=== PATIENT | male | born 1995 ===

== ENCOUNTER 2021-03-01 18:34 | Emergency (ER) | payer SELFPAY ==
[~2021-03-01] VITALS: Ht 150 cm; Wt 81.8 kg
[2021-03-01 20:00] VITALS: BP 132/70; PULSE 84; TEMP 98.4
== END 2021-03-01 20:00 | disposition home or self-care (01) ==
LOC: COL.ER 18:34
DX: S46.911A Strain of unspecified muscle, fascia and tendon at shoulder and upper arm level, right arm, initial encounter (principal); W01.0XXA Fall on same level from slipping, tripping and stumbling without subsequent striking against object, initial encounter; Y92.009 Unspecified place in unspecified non-institutional (private) residence as the place of occurrence of the external cause; Y99.0 Civilian activity done for income or pay

== ENCOUNTER 2021-10-25 14:53 | Emergency (ER) | payer SELFPAY ==
[~2021-10-25] VITALS: Ht 162.6 cm; Wt 81.8 kg
[2021-10-25 15:00] VITALS: BP 110/71; TEMP 98.3
[2021-10-25] MEDS ORDERED: FLEXERIL 1010 MG/TAB PO (15:39)
[2021-10-25] MEDS ORDERED: PREDNISONE20 MG PO (15:39)
[2021-10-25 16:10] VITALS: PULSE 80
== END 2021-10-25 16:10 | disposition home or self-care (01) ==
LOC: COL.ER 14:53
DX: M25.511 Pain in right shoulder (principal); Z28.310 Unvaccinated for COVID-19; X50.0XXA Overexertion from strenuous movement or load, initial encounter; Y92.59 Other trade areas as the place of occurrence of the external cause; Y99.0 Civilian activity done for income or pay
CPT/HCPCS: J7512

== ENCOUNTER 2021-11-28 08:10 | Outpatient (RCR) | payer SELFPAY ==
[~2021-11-28 08:10] MED LIST: FLEXERIL 1010 MG/TAB PO; PREDNISONE20 MG PO
== END 2021-12-06 | disposition home or self-care (01) ==
LOC: WSPT
DX: M25.512 Pain in left shoulder (principal)

== ENCOUNTER 2022-01-04 09:00 | Outpatient (RCR) | payer SELFPAY | END 2022-01-06 | disposition home or self-care (01) | LOC: WSPT | DX: M25.512 Pain in left shoulder (principal) ==

== ENCOUNTER 2022-01-29 09:00 | Outpatient (RCR) | payer SELFPAY | END 2022-01-29 14:00 | disposition home or self-care (01) | LOC: WSPT 09:00 | DX: M25.511 Pain in right shoulder (principal); Z98.890 Other specified postprocedural states ==

== ENCOUNTER 2022-02-19 17:03 | Emergency (ER) | payer SELFPAY ==
[~2022-02-19] VITALS: Ht 160 cm; Wt 86.4 kg
[2022-02-19 17:23] VITALS: TEMP 98.1
[2022-02-19] MEDS ORDERED: NORCO 325 MG-51 TAB PO (20:33)
[2022-02-19] MEDS ORDERED: AMOXICILLIN 8751 TAB PO (20:33)
[2022-02-19 20:50] VITALS: BP 120/68; PULSE 70
== END 2022-02-19 21:10 | disposition home or self-care (01) ==
LOC: COL.ER 17:03
DX: S71.141A Puncture wound with foreign body, right thigh, initial encounter (principal); Z23 Encounter for immunization; F17.210 Nicotine dependence, cigarettes, uncomplicated; W29.4XXA Contact with nail gun, initial encounter

== ENCOUNTER 2022-02-21 05:35 | Day surgery (SDC) | payer SELFPAY ==
[~2022-02-21] VITALS: Ht 162.6 cm; Wt 86.6 kg
[~2022-02-21 05:35] MED LIST changes: +AMOXICILLIN 8751 TAB PO; +NORCO 325 MG-51 TAB PO
[2022-02-21 06:05] VITALS: BP 120/79; PULSE 60; TEMP 97.8
--- NOTE | 2022-02-21 06:43 | NUR ---
Patient prefers reading and writing in togolese. Phone translater used when needed. Friend at bedside able to translate for patient as well.
[2022-02-21 08:45] VITALS: BP 109/59; PULSE 76
[2022-02-21 09:00] VITALS: BP 107/64; PULSE 76; TEMP 97.8
[2022-02-21 09:15] VITALS: BP 102/56; PULSE 63
[2022-02-21 09:30] VITALS: BP 108/69; PULSE 82; TEMP 97.6
--- NOTE | 2022-02-21 10:21 | NUR ---
0845: Patient arrived back into [facility] from PACU. Patient is drowsy but arousable. Vital signs stable. Report received from LURDES Murphy Patient requesting to rest at this time. Patient denies pain and nausea. Call light left within reach. 0900: Patient vitally stable. Resting in room with eyes closed at this time. 0915: Patient vitally stable. Resting in room with eyes closed at this time. Denies pain or nausea. 0930: Patient awake. Vital signs stable Requesting pepsi and jello at this time. 0945: Patient tolerating food and drink well. States he is having some incisional pain rating about 3-4/10. 0950: PRN pain medication given per AUG. 1000: Patient up to restroom via stand by assist. Patient ambulated back to room and getting dressed independently in room. 1010: IV removed without complications. Went through discharge instructions with patient via interprator. Escorted to emergency department entrance via wheelchair where Helene, friend, met patient. Patient got into personal vehicle and left in the care of his friend.
--- NOTE | 2022-02-21 11:50 | NUR ---
Interprators used: Nora [id number] Malissa [id number] Yuval [id number]
== END 2022-02-21 10:15 | disposition home or self-care (01) ==
LOC: SDCO 05:35
DX: S71.141A Puncture wound with foreign body, right thigh, initial encounter (principal); F17.200 Nicotine dependence, unspecified, uncomplicated; W34.09XA Accidental discharge from other specified firearms, initial encounter; Y92.009 Unspecified place in unspecified non-institutional (private) residence as the place of occurrence of the external cause
CPT/HCPCS: J0690; J1100; J1885; J2405; J2704; J3010; J7120

== ENCOUNTER 2022-07-18 19:13 | Emergency (ER) | payer SELFPAY ==
[~2022-07-18] VITALS: Ht 165 cm; Wt 81.9 kg
[2022-07-18 19:19] VITALS: TEMP 98.9
[2022-07-18 19:47] LABS: STREP SCREEN NEGATIVE
[2022-07-18 20:20] VITALS: BP 137/86; PULSE 80
== END 2022-07-18 20:20 | disposition home or self-care (01) ==
LOC: COL.ER 19:13
PROVIDERS: Nurse Practitioner Primary Care
DX: J03.90 Acute tonsillitis, unspecified (principal); B34.9 Viral infection, unspecified; F17.210 Nicotine dependence, cigarettes, uncomplicated; Z28.311 Partially vaccinated for COVID-19

== ENCOUNTER 2024-02-09 17:37 | Emergency (ER) | payer SELFPAY ==
[~2024-02-09] VITALS: Ht 172.7 cm; Wt 82.0 kg
[~2024-02-09 17:37] MED LIST changes: +DEPAKOTE500 MG PO; +KEPPRA 500MG500 MG PO; +ZOLOFT 25MG25 MG PO
[2024-02-09 18:10] VITALS: TEMP 98.5
[2024-02-09 19:07] VITALS: BP 108/67; PULSE 65
== END 2024-02-09 19:08 | disposition home or self-care (01) ==
LOC: COL.ER 17:37
DX: S46.911A Strain of unspecified muscle, fascia and tendon at shoulder and upper arm level, right arm, initial encounter (principal); Z98.890 Other specified postprocedural states; X58.XXXA Exposure to other specified factors, initial encounter; Y93.H3 Activity, building and construction